=== PATIENT | female | born 1950 | race Caucasian/White ===

== ENCOUNTER 2023-12-30 10:31 | Outpatient (CLI) | payer MEDICARE, SELFPAY ==
--- NOTE | ~2023-12-30 | MR_ITS ---
EXAMINATION: MR knee LT wo con DATE: 12/30/2023 11:41 INDICATION: Other tear of medial meniscus. Left knee pain. TECHNIQUE: Magnetic resonance imaging (MRI) of the left knee was performed without intravenous contra st. Sequences included axial PD-weighted FS FSE, coronal PD-weighted FSE and PD-weighted FS FSE, sagi ttal PD-weighted FSE, and sagittal T2-weighted FS FSE. COMPARISON: Left knee radiographs 12/26/2023 FINDINGS: Medial compartment: Medial meniscus is normal. There is cartilage surface irregularity of femoral condyle and tibial cond yle. Lateral compartment: Lateral meniscus is normal. There is shallow partial-thickness cartilage loss of femoral condyle and tibial condyle. Patellofemoral compartment: There is full-thickness cartilage loss of patellar median ridge and medial and lateral facets with mi ld subchondral edema-like marrow signal intensity. There is full-thickness cartilage loss of lateral trochlea with mild subchondral edema-like marrow signal intensity. Ligaments and tendons: Anterior and posterior cruciate ligaments are normal. There are changes of prior sprains of medial co llateral ligament and fibular collateral ligament characterized by increased signal intensity proxima lly. There is mild patellar tendinopathy. Fluid: There is a small knee joint effusion. There is mild prepatellar and superficial infrapatellar bursiti s. IMPRESSION: 1. Severe chondrosis of patellofemoral compartment and mild chondrosis of medial and lateral compartm ents. 2. Small knee joint effusion. Reviewed, dictated and finalized at location E. IMPRESSION: 1. Severe chondrosis of patellofemoral compartment and mild chondrosis of media l and lateral compartments. 2. Small knee joint effusion.
== END 2023-12-30 10:32 ==
LOC: GOSHIMG 10:32
PROVIDERS: PCP Internal Medicine; Visit Provider Orthopaedic Surgery
DX: S83.242A Other tear of medial meniscus, current injury, left knee, initial encounter (principal); X58.XXXA Exposure to other specified factors, initial encounter; M25.462 Effusion, left knee
CPT/HCPCS: 73721

== ENCOUNTER 2024-02-21 13:43 | Emergency (ER) | payer MEDICARE, SELFPAY ==
--- NOTE | ~2024-02-21 | XR_ITS ---
EXAMINATION: XR knee LT min 4V DATE: 02/21/2024 16:44 INDICATION: Fall. TECHNIQUE: 4 views of left knee were obtained. COMPARISON: Left knee radiographs 12/26/2023 FINDINGS: Bone alignment is normal. No fracture. There is mild tricompartmental osteoarthritis. There is a small knee joint effusion. IMPRESSION: 1. Mild left knee osteoarthritis. 2. Small left knee joint effusion. Reviewed, dictated and finalized at location E.
--- NOTE | ~2024-02-21 | XR_ITS ---
EXAMINATION: XR hand LT min 3V DATE: 02/21/2024 16:44 INDICATION: Fall. TECHNIQUE: 4 views of the left hand were obtained. COMPARISON: None. FINDINGS: No fracture. There is severe osteoarthritis of triscaphe joint and moderate osteoarthritis of first carpometacarpal joint. There is mild to moderate osteoarthritis of first metacarpophalangeal joints and some of the interphalangeal joints. There is severe osteoarthritis of first interphalange al joint and second distal interphalangeal joint. IMPRESSION: 1. Polyarticular osteoarthritis. Reviewed, dictated and finalized at location E.
[2024-02-21 14:18] VITALS: BP 181/91; PULSE 72; RESP 18; TEMP 36.7; O2SAT 94
--- NOTE | 2024-02-21 18:18 | PC.NURSE ---
Pt experienced ground level fall, c/o pain to left knee & left ring finger laceration. Left ring finger swollen around wedding ring causing discomfort. Cary Ahn PA & this RN worked on cutting ring off with ring cutter. Ice applied to finger. Pt tolerated well
[2024-02-21] MEDS: TETANUS,DIPHTHERIA,AC PERTUSSIS ADULT (0.5 ML) BOOSTRIX IM (18:25)
[2024-02-21] MEDS: ACETAMINOPHEN 325 MG TABLET 650 MG PO (18:26)
[2024-02-21 18:40] VITALS: BP 160/88; PULSE 88; RESP 18; TEMP 36.7; O2SAT 100
--- NOTE | 2024-02-21 18:40 | ED.FALL ---
HPI - Fall General Chief Complaint: Fall Stated Complaint: fall, finger lac, knee pain Time Seen by Provider: 02/21/24 17:04 History of Present Illness HPI Narrative: Patient was loading a box when she tripped or felt her left knee give out from under her, she felt a pop in her knee, and then realized that she had also cut her finger when she fell, denies hitting her head. Has had issues with her left knee for a long time. Related Data Home Medications Medication Instructions Recorded Confirmed atorvastatin 10 mg tablet 5 mg PO .COMPLEX 12/26/23 01/01/24 cetirizine 10 mg capsule (All Day 10 mg PO DAILY PRN 12/26/23 01/01/24 Allergy (cetirizine)) cholecalciferol (vitamin D3) 50 50 mcg PO DAILY 12/26/23 01/01/24 mcg (2,000 unit) capsule fluticasone propionate 50 2 spray intranasal DAILY 12/26/23 01/01/24 mcg/actuation nasal spray,suspension (Allergy Relief (fluticasone)) lisinopril 5 mg tablet 5 mg PO DAILY 12/26/23 01/01/24 [id number] 250 mg-dha 90 1 cap PO DAILY 12/26/23 01/01/24 mg-epa 160 dn-smlt-fjsz-zeax capsule (Ocuvite Adult 50 Plus) Allergies Allergy/AdvReac Type Severity Reaction Status Date / Time bevacizumab Allergy Severe RAPID HB, Verified 01/01/24 07:56 RADHA Review of Systems Review of Systems: All systems reviewed & are unremarkable except as noted in HPI and below PMFSH Past Medical History Medical History Allergies High cholesterol Hypertension Retinal hemorrhage Surgical History Surgical History H/O: hysterectomy Hx of cholecystectomy Family History Family History Sibling Family history of liver disease Family history of malignant neoplasm Family history of kidney disease Mother Family history of diabetes mellitus in first degree relative Social History Social History Smoking status: Never smoker Alcohol intake: never Substance use: never Substance use type: does not use Do You Feel Safe in your Home?: Yes Lack of Transportation: No Lack of Food: Never True Current Housing: I Have Housing Concerned About Future Housing: No Difficulty Paying Gas/Electric Bills: No Difficulty Paying for Meds: No Currently Unemployed: No Education: Trade/Vocational Certificate Difficulty w/ Childcare or Family Care: No Living arrangements: with family Occupation/Education: retired Gender identity (if verbalized by the patient): Female Exam Narrative: EXAMINATION OF ORGAN SYSTEMS/BODY AREAS: Constitutional: Vital signs per nursing GENERAL:[No acute distress, non-toxic appearing.] HEAD: Normal with no signs of head trauma. EYES: EOMI, conjunctiva normal ENT: Hearing grossly intact LUNGS: Nonlabored breathing. HEART: [Regular rate and rhythm] ABD: [Soft], nontender to palpation EXT: Multiple lacs to L ring finger with some swelling, SKIN: [No rashes or lesions.] NEURO: [Alert and oriented x 3. No gross focal sensory or strength deficits.] PSYCH: Normal affect Course Vital Signs Vital signs: Vital Signs Temperature 98.0 F 02/21/24 14:18 Pulse Rate 72 02/21/24 14:18 Respiratory Rate 18 02/21/24 14:18 Blood Pressure 181/91 H 02/21/24 14:18 Pulse Oximetry 94 02/21/24 14:18 Temperature 98.0 F 02/21/24 14:18 Pulse Rate 72 02/21/24 14:18 Respiratory Rate 18 02/21/24 14:18 Blood Pressure 181/91 H 02/21/24 14:18 Pulse Oximetry 94 02/21/24 14:18 Procedures Laceration Laceration 1: Date: 02/21/24 Time: 18:44 Site: hand Side (If applicable): left Size (cm): 3 Description: linear, flap, irregular and clean Depth: simple, single layer Local Anesthetic: none (digital block) Amount of anesthesia used
--- NOTE | 2024-02-21 19:26 | PC.NURSE ---
Pt tolerated laceration repair x4 sutures placed, triple antibiotic ointment applied with band aid.
== END 2024-02-21 19:36 | disposition home or self-care (01) ==
PROVIDERS: Emergency Provider Emergency Medicine; PCP Internal Medicine
DX: S83.92XA Sprain of unspecified site of left knee, initial encounter (principal); S61.215A Laceration without foreign body of left ring finger without damage to nail, initial encounter; W01.0XXA Fall on same level from slipping, tripping and stumbling without subsequent striking against object, initial encounter; I10 Essential (primary) hypertension; E78.00 Pure hypercholesterolemia, unspecified; Z23 Encounter for immunization; G89.18 Other acute postprocedural pain
CPT/HCPCS: 12002; 73130; 73564; 90471; 90715; 99284; A9270

== ENCOUNTER 2024-02-27 10:29 | Outpatient (CLI) | payer MEDICARE, SELFPAY ==
--- NOTE | ~2024-02-27 | MR_ITS ---
MRI of the left knee Clinical history: Medial meniscus tear Technique: Coronal proton density and proton density-weighted images, sagittal proton-density and T2 fat-sat images, and axial proton-density fat-saturated images were acquired. COMPARISON: 12/30/2023 Findings: Suspected high-grade, possible complete tear of the proximal ACL, new from prior exam. Post erior cruciate ligament is intact. Stable ganglion cyst along the superior margin of the posterior cr uciate ligament measuring 1.8 x 1.0 cm in size. Medial collateral ligament and the lateral collateral ligament complex are intact. Popliteus tendon is intact. No definite medial meniscal tear seen. There is intrasubstance degenerative signal in the posterior h orn of the medial meniscus. There is probable vertical/free edge tear of the posterior horn of the la teral meniscus, new from prior exam. There are bone contusions focally at the central aspect of the lateral femoral condyle and along the posterior medial and posterolateral tibial plateau regions, suggestive of recent pivot shift injury. No fracture evident. Stable extensive high-grade chondromalacia patella. There is also extensive high -grade chondral malacia the femoral trochlea. Extensor mechanism is intact. Small to moderate joint effusion present. No significant Ventura's cyst. Impression: High-grade, possible complete tear of the proximal ACL, new from prior exam. Probable vertical/free edge tear of the posterior horn lateral meniscus, also new from prior exam. Bone contusions focally at the lateral femoral condyle and along the posterior medial and posterolate ral tibial plateau regions, suggestive of recent pivot shift injury. Jncns-mx-tzcfxlzu joint effusion. Stable degenerative changes, as detailed above, worst in the patellofemoral compartment. Reviewed, dictated and finalized at location M. Impression: High-grade, possible complete tear of the proximal ACL, new from prior exam. Probable vertical/free edge tear of the posterior horn lateral meniscus, also n ew from prior exam. Bone contusions focally at the lateral femoral condyle and along the posterior medial and posterolateral tibial plateau regions, suggestive of recent pivot sh ift injury. Wqeyn-ms-rslaylwq joint effusion. Stable degenerative changes, as detailed above, worst in the patellofemoral com partment.
== END 2024-02-27 10:30 ==
LOC: GOSHIMG 10:30
PROVIDERS: PCP Internal Medicine; Visit Provider Orthopaedic Surgery
DX: M25.462 Effusion, left knee (principal); S83.512D Sprain of anterior cruciate ligament of left knee, subsequent encounter; X58.XXXD Exposure to other specified factors, subsequent encounter
CPT/HCPCS: 73721

== ENCOUNTER 2024-03-05 11:01 | Emergency (ER) | payer MEDICARE, SELFPAY ==
--- NOTE | 2024-03-05 11:08 | ED.WOUNDLAC ---
HPI - Wound/Laceration General Chief Complaint: Wound/Laceration Stated Complaint: Stitches Removal Time Seen by Provider: 03/05/24 11:04 Source: patient Mode of arrival: ambulatory Limitations: no limitations History of Present Illness HPI narrative: Mely is a 73-year-old female patient presenting to the clinic today for suture removal of the ring finger. Sutures were placed on to the left ring medial finger on February 20 after patient had a fall. Related Data Home Medications Medication Instructions Recorded Confirmed atorvastatin 10 mg tablet 5 mg PO .COMPLEX 12/26/23 03/05/24 cetirizine 10 mg capsule (All Day 10 mg PO DAILY PRN Allergic 12/26/23 03/05/24 Allergy (cetirizine)) Symptoms cholecalciferol (vitamin D3) 50 50 mcg PO DAILY 12/26/23 03/05/24 mcg (2,000 unit) capsule fluticasone propionate 50 2 spray intranasal DAILY 12/26/23 03/05/24 mcg/actuation nasal spray,suspension (Allergy Relief (fluticasone)) lisinopril 5 mg tablet 5 mg PO DAILY 12/26/23 03/05/24 [id number]-[id number] 250 mg-dha 90 1 cap PO DAILY 12/26/23 03/05/24 mg-epa 160 zo-sbpy-cyls-zeax capsule (Ocuvite Adult 50 Plus) Allergies Allergy/AdvReac Type Severity Reaction Status Date / Time bevacizumab Allergy Severe RAPID HB, Verified 03/05/24 11:10 SHAKES Review of Systems Review of Systems: Pertinent positives per HPI. Patient denies any fever, chills, rash, headache, visual changes, dizziness, cough, runny nose, sore throat, shortness of breath, chest pain, palpitations, nausea, vomiting, diarrhea, constipation, abdominal pain, or any urinary issues. [facility] Past Medical History Medical History Allergies High cholesterol Hypertension Retinal hemorrhage Surgical History Surgical History H/O: hysterectomy Hx of cholecystectomy Family History Family History Sibling Family history of liver disease Family history of malignant neoplasm Family history of kidney disease Mother Family history of diabetes mellitus in first degree relative Social History Social History Smoking status: Never smoker Alcohol intake: never Substance use: never Substance use type: does not use Do You Feel Safe in your Home?: Yes Lack of Transportation: No Lack of Food: Never True Current Housing: I Have Housing Concerned About Future Housing: No Difficulty Paying Gas/Electric Bills: No Difficulty Paying for Meds: No Currently Unemployed: No Education: Trade/Vocational Certificate Difficulty w/ Childcare or Family Care: No Living arrangements: with family Occupation/Education: retired Gender identity (if verbalized by the patient): Female Comments At the time of my signature, I reviewed and agree with the nursing past medical, surgical, social, and family history. There is no relevant family history pertinent to the patient complaint. Exam Narrative: General: Well-developed, well nourished, in no apparent distress Head: Normocephalic, atraumatic. Cardio: Regular rate and rhythm, s1 and s2 normal, no murmur appreciated. Resp: Clear to auscultation bilaterally, no rhonchi, rales, wheezing or rubs. Integumentary: [place], warm, and dry, well healing scabbed over laceration to the left medial ring finger. Course Course Emergency Course: Portions of this record may have been created with voice recognition software. Level of Care: Express Care Visit Vital Signs Vital signs: Vital signs reviewed MDM - Wound/Laceration MDM Narrative Medical decision making narrative: At the time of visit patient is resting comfortably on the exam table. Patient appears to be nontoxic. Plan: Four sutures were removed in the clinic today. Patient tolerated well. Suppo
[2024-03-05 11:16] VITALS: BP 136/80; PULSE 57; RESP 16; TEMP 37; O2SAT 98
== END 2024-03-05 11:22 | disposition home or self-care (01) ==
PROVIDERS: Emergency Provider Nurse Practitioner Family; PCP Internal Medicine
DX: S61.215D Laceration without foreign body of left ring finger without damage to nail, subsequent encounter (principal); X58.XXXD Exposure to other specified factors, subsequent encounter; E78.00 Pure hypercholesterolemia, unspecified; I10 Essential (primary) hypertension
CPT/HCPCS: 99211; G0463

== ENCOUNTER 2024-06-09 02:58 | Emergency (ER) | payer MEDICARE, SELFPAY ==
--- NOTE | ~2024-06-09 | XR_ITS ---
Portable chest x-ray Comparison: None Clinical History: Palpitations Findings: Lungs are clear, without focal consolidation or pleural effusion. Cardiomediastinal silho uette is unremarkable. Bones and soft tissues are unremarkable. Impression: Normal chest. Reviewed, dictated and finalized at location . Impression: Normal chest.
[2024-06-09 03:03] VITALS: BP 181/87; PULSE 96; RESP 19; TEMP 37.1; O2SAT 100
--- NOTE | 2024-06-09 03:05 | ECG_ITS ---
Test Date: 2024-06-09 03:09:03 Measurements Intervals [place] Rate: 85 P: 50 TX: 219 QRS: -38 QRSD: 139 T: 110 QT: 376 QTc: 449 Interpretive Statements SINUS RHYTHM WITH FIRST DEGREE AV BLOCK LEFT AXIS DEVIATION LEFT BUNDLE BRANCH BLOCK ABNORMAL ECG No previous ECG available for comparison Electronically Signed On 06-09-2024 06:32:50 CDT by Gonzalo Watt D.O.
[2024-06-09 03:19] VITALS: O2SAT 100
[2024-06-09 03:21] LABS: Basophils Percent Auto 0.4 % (0.2-1.2); Eosinophils Absolute Auto 0.1 K/mm3 (0-0.3); Eosinophils Percent Auto 1.7 % (0-4.4); Hematocrit 40.5 % (37.0-47.0); Hemoglobin 13.5 g/dL (12.0-15.0); Immature Granulocyte Absolute 0.02 K/mm3 (0.00-0.031); Immature Granulocyte Percent A 0.3 % (0-0.5); Lymphocytes Percent Auto 48.8 % (18.3-44.2); Mean Corpuscular HGB Conc 33.3 g/dl (32-36); Mean Platelet Volume 8.4 fl (7.4-10.4); Monocytes Absolute Auto 0.5 K/mm3 (0.1-0.6); Monocytes Percent Auto 6.1 % (2.6-8.5); Neutrophils Absolute Auto 3.2 K/mm3 (1.3-6.7); Neutrophils Percent Auto 42.7 % (45.5-73.1); Platelet Count Result 199 k/mm3 (150-375); Red Cell Distribution Width 11.8 % (11.5-14.5); White Blood Count 7.6 K/mm3 (4.5-10.0)
[2024-06-09 03:30] LABS: Alanine Aminotransferase 15 U/L (6-35); Albumin Level 4.4 g/dL (3.5-5.1); Alkaline Phosphatase 96 U/L (38-126); Anion Gap 9 mmol/L (4-12); Aspartate Amino Transferase 24 U/L (14-36); Bilirubin,Total 0.4 mg/dL (0.2-1.3); Blood Urea Nitrogen 19 mg/dL (7-17); Calcium 9.8 mg/dL (8.4-10.2); Carbon Dioxide 29 mmol/L (22-30); Chloride 101 mmol/L (98-107); Estimated CRCL calculation 49 ml/min; Estimated Glomerular Filt Rate > 60; Glucose 95 mg/dL (65-110); Lipase 207 U/L (23-300); Potassium 4.1 mmol/L (3.4-5.0); Sodium 139 mmol/L (137-145)
[2024-06-09 03:32] LABS: Partial Thromboplastin Time 28.3 Seconds (22.3-36.8); Prothrombin Time 13.7 Seconds (11.1-14.7)
[2024-06-09 03:42] LABS: Troponin I < 0.012 ng/mL (0.000-0.034)
--- NOTE | 2024-06-09 04:41 | ED.GENADULT ---
HPI - General Adult General Chief complaint: Arrhythmia/Palpitations Stated complaint: Heart racing, no chest pain, hx of LBB Time Seen by Provider: 06/09/24 03:10 History of Present Illness HPI narrative: This is a 73-year-old female presenting with palpitations. Patient says she woke up to go the bathroom around 1 the morning. When she got back to bed she started to have palpitations associated with shortness of breath nausea. The resolved on their own after 20 minutes. She is currently asymptomatic. Patient says that she had these 10 years ago for quite some time. She had cardiology evaluation at that time unknown was able to figure out what was causing it. However they slowly decreased in frequency and she has not had 1 in quite some time. No fevers chills cough chest pain shortness of breath abdominal pain urinary symptoms. No nausea vomiting diarrhea. Related Data Home Medications Medication Instructions Recorded Confirmed atorvastatin 10 mg tablet 5 mg PO .COMPLEX 12/26/23 05/27/24 cetirizine 10 mg capsule (All Day 10 mg PO DAILY PRN Allergic 12/26/23 05/27/24 Allergy (cetirizine)) Symptoms cholecalciferol (vitamin D3) 50 50 mcg PO DAILY 12/26/23 05/27/24 mcg (2,000 unit) capsule fluticasone propionate 50 2 spray intranasal DAILY 12/26/23 05/27/24 mcg/actuation nasal spray,suspension (Allergy Relief (fluticasone)) lisinopril 5 mg tablet 5 mg PO DAILY 12/26/23 05/27/24 ixxacwaq-bpo-uiond8 250 mg-dha 90 1 cap PO DAILY 12/26/23 05/27/24 mg-epa 160 bd-hdof-yqrx-zeax capsule (Ocuvite Adult 50 Plus) acetaminophen 500 mg tablet 500 mg PO Q6H PRN Pain 05/27/24 05/27/24 ibuprofen 200 mg tablet 200 mg PO Q6H PRN Pain 05/27/24 05/27/24 Allergies Allergy/AdvReac Type Severity Reaction Status Date / Time bevacizumab Allergy Severe RAPID HB, Verified 06/09/24 03:20 SHAKES PMFSH Past Medical History Medical History Allergies High cholesterol Hypertension Retinal hemorrhage Surgical History Surgical History H/O: hysterectomy Hx of cholecystectomy Family History Family History Sibling Family history of liver disease Family history of malignant neoplasm Family history of kidney disease Cerebrovascular accident Mother Family history of diabetes mellitus in first degree relative Diabetes mellitus Dementia Father , Onset Age: 33 MVC Sibling , copd Liver cancer Social History Social History Smoking status: Never smoker Second hand tobacco smoke exposure: No Alcohol intake: never Substance use: never Substance use type: does not use Do You Feel Safe in your Home?: Yes Lack of Transportation: No Lack of Food: Never True Current Housing: I Have Housing Concerned About Future Housing: No Difficulty Paying Gas/Electric Bills: No Difficulty Paying for Meds: No Currently Unemployed: No Education: Trade/Vocational Certificate Difficulty w/ Childcare or Family Care: No Living arrangements: with family Occupation/Education: retired Additional occupation/education comments: [employer] Gender identity (if verbalized by the patient): Female Spiritual care concerns: No Exam Narrative: APPEARANCE: No apparent distress. Head: atraumatic. EYES: EOMI, NOSE: Atraumatic NECK: Trachea midline RESPIRATORY: No increased rate of breathing clear auscultation CARDIOVASCULAR: RRR, no peripheral edema ABDOMINAL: Non-distended soft nontender MUSCULOSKELETAl: No obvious deformities NEURO: Alert. Moving 4/4 extremities SKIN:: Warm, dry. Normal color PSYCHIATRIC: Normal affect Course Vital Signs Vital signs: Vital Signs Temperature 98.8 F 06/09/24 03:03 Pulse Rate 96 06/09/24 03:0
[2024-06-09 04:59] VITALS: BP 159/80; PULSE 70; RESP 16; O2SAT 96
--- NOTE | 2024-06-09 05:40 | ECG_ITS ---
Test Date: 2024-06-09 05:43:18 Measurements Intervals [place] Rate: 102 P: 63 [place]: 211 QRS: -49 QRSD: 137 T: 108 QT: 348 QTc: 454 Interpretive Statements SINUS TACHYCARDIA WITH FIRST DEGREE AV BLOCK LEFT AXIS DEVIATION POSSIBLE LEFT ATRIAL ENLARGEMENT LEFT BUNDLE BRANCH BLOCK BASELINE ARTIFACT- I, II, III, AVR, AVL, AVF, V1-V2, V6 ABNORMAL ECG Compared to ECG 06/09/2024 03:09:03 HEART RATE HAS INCREASED Electronically Signed On 06-09-2024 06:37:21 CDT by Gonzalo Watt D.O.
[2024-06-09 06:53] LABS: Troponin I < 0.012 ng/mL (0.000-0.034)
[2024-06-09 07:07] VITALS: BP 153/90; PULSE 70; RESP 15; O2SAT 98
== END 2024-06-09 07:22 | disposition home or self-care (01) ==
PROVIDERS: Emergency Provider Emergency Medicine; PCP Internal Medicine
DX: R00.0 Tachycardia, unspecified (principal); R06.02 Shortness of breath; I10 Essential (primary) hypertension; E78.00 Pure hypercholesterolemia, unspecified; Z90.49 Acquired absence of other specified parts of digestive tract; Z90.710 Acquired absence of both cervix and uterus; Z79.899 Other long term (current) drug therapy
CPT/HCPCS: 36415; 71045; 80053; 83690; 84484; 85025; 85610; 85730; 93005; 99284

== ENCOUNTER 2024-09-16 03:03 | Day surgery (SDC) | payer MEDICARE, SELFPAY ==
--- NOTE | 2024-09-10 15:41 | PC.NURSE ---
Report to the Outpatient Waiting Room, entrance under the green pavilion located off [facility], at time __6 AM on date _09/16/24 . Planned Procedure Time: __7:30 AM .? Time changes happen often and if your time is changed the preop area will call you the afternoon before. - You and your visitor will be asked to self-screen and do not enter if you have any COVID symptoms. Please call surgeon if you need to reschedule. - A mask is optional within the hospital at this time. Patients may have clear liquids (water, carbonated beverages, clear teas, apple juice) until 3 hours prior to surgery( 4:30 AM)with a maximum of 20 ounces. - No food from midnight until time of surgery and no smoking. This includes no chewing gum, candy or mints. - Infants may have breast milk until 4 hours before surgery, formula 6 hours prior to surgery. - Children will be allowed to drink immediately following surgery.? If applicable, please bring a bottle or sippy cup to assist with drinking. Juice, water, soda, and popsicles are readily available.? For infants on formula, please bring formula the day of surgery.? Pacifiers are allowed. Take only the following medications with a SIP of water on the morning of surgery: _NONE DO NOT STOP ANY OF YOUR OTHER PRESCRIPTION MEDICATIONS PRIOR TO SURGERY EXCEPT THE FOLLOWING Medications to discontinue per physician ___PT STATES HOLD ASPIRIN 4 DAYS PRE OP PER DR FERNANDEZ. LAST DOSE 09/11/24 HOLD ALL VITAMINS AND SUPPLEMENTS 3 DAYS PRE OP.LAST DOSE 09/12/24 Please no make-up, nail danish, hairspray, perfume, deodorant, or body powder the day of surgery.? No jewelry (including any body piercings) or valuables the day of surgery, leave them at home.? Please take a shower or bath the night before, or the morning of, surgery with an antibacterial soap.? Wear comfortable, loose fitting clothing.? Children are encouraged to wear pajamas. - Jewelry must be removed prior to entering the operating room.? Rings and piercings that are not removed may be cut off. - The hospital will not accept responsibility for valuables.? - Please leave all valuables, including medications, at home the day of surgery. If you are going home after surgery, a licensed after school driver must drive you home.? - NO public transportation without another adult if you receive anesthesia. - We recommend that an adult stay with you for 24 hours following discharge. - We also recommend that you do not drive, make important decision, drink alcoholic beverages, or take any drugs that were not prescribed by your health care provider for at least 24 hours after your discharge time. For Pediatric surgeries, we recommend two adults accompany the child home. Follow any additional instructions given to you from your surgeon. Telephone instructions given to __PATIENT and asked if any additional questions and then verbalized understanding. Patient advised to call surgeon office or pre surgery nurse liaison [phone] if any additional questions.
[2024-09-10 15:46] VITALS: BMI 25.9
--- NOTE | 2024-09-15 12:54 | P.HP_ITS ---
H&P: HPI History of Present Illness Date/Time: 09/15/24 12:54 Chief Complaint: Patient has knee pain left. She has catching and locking mechanical type symptoms and a meniscal tear involving the lateral meniscus. Review of Systems Musculoskeletal: Musculoskeletal: Reports arthralgias, Reports joint swelling and Reports stiffness Neurologic: Reports abnormal gait [facility] Past Medical History Medical History Allergies High cholesterol Hypertension Retinal hemorrhage Surgical History Surgical History H/O: hysterectomy Hx of cholecystectomy Family History Family History Sibling Family history of liver disease Family history of malignant neoplasm Family history of kidney disease Cerebrovascular accident Mother Family history of diabetes mellitus in first degree relative Diabetes mellitus Dementia Father , Onset Age: 33 MVC Sibling , copd Liver cancer Social History Social History Smoking status: Never smoker Second hand tobacco smoke exposure: No Alcohol intake: never Substance use: never Substance use type: does not use Do You Feel Safe in your Home?: Yes Lack of Transportation: No Lack of Food: Never True Current Housing: I Have Housing Concerned About Future Housing: No Difficulty Paying Gas/Electric Bills: No Difficulty Paying for Meds: No Currently Unemployed: No Education: Trade/Vocational Certificate Difficulty w/ Childcare or Family Care: No Living arrangements: alone 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 Gender identity (if verbalized by the patient): Female Spiritual care concerns: No Meds Home Medications and Allergies Home Medications ?Medication ?Instructions ?Recorded ?Confirmed ?Type atorvastatin 10 mg tablet 5 mg PO .COMPLEX 12/26/23 09/10/24 History cetirizine 10 mg capsule (All Day 10 mg PO DAILY PRN Allergic 12/26/23 09/10/24 History Allergy (cetirizine)) Symptoms cholecalciferol (vitamin D3) 50 50 mcg PO DAILY 12/26/23 09/10/24 History mcg (2,000 unit) capsule fluticasone propionate 50 2 spray intranasal DAILY 12/26/23 09/10/24 History mcg/actuation nasal spray,suspension (Allergy Relief (fluticasone)) [id number] 250 mg-dha 90 1 cap PO DAILY 12/26/23 09/10/24 History mg-epa 160 jr-zxpj-bpbx-zeax capsule (Ocuvite Adult 50 Plus) acetaminophen 500 mg tablet 500 mg PO Q6H PRN Pain 05/27/24 09/10/24 History aspirin 81 mg tablet,delayed 81 mg PO DAILY 09/10/24 09/10/24 History release ezetimibe 10 mg tablet (Zetia) 10 mg PO DAILY 09/10/24 09/10/24 History losartan 50 mg tablet 50 mg PO DAILY 09/10/24 09/10/24 History Allergies Allergy/AdvReac Type Severity Reaction Status Date / Time bevacizumab Allergy Severe RAPID HB, Verified 09/10/24 15:30 SHAKES Exam Narrative: On exam she is tender laterally has catching locking and pain in the knee she has got mechanical symptoms. Neurologically she is intact. She walks with a limp. She has pain with any manipulation. Radiology Reports: Comments: Patient: Mely Milligan MRI of the left knee Clinical history: Medial meniscus tear Technique: Coronal proton density and proton density-weighted images, sagittal proton-density and T2 fat-sat images, and axial proton-density fat-saturated images were acquired. COMPARISON: 12/30/2023 Findings: Suspected high-grade, possible complete tear of the proximal ACL, new from prior exam. Posterior cruciate ligament is intact. Stable ganglion cyst along the superior margin of the posterior cruciate ligament measuring 1.8 x 1.0 cm in size. Medial collateral ligament and the lateral collateral ligament complex are intact. Popliteus tendon is intact. No definite medial meniscal tear seen. There is intrasubstance degenerative signal in the posterior horn of the medial meniscus. There is probable vertical/free edge tear of the posterior horn of the lateral meniscus, new from prior exam. There are bone contusions focally at the central aspect of the lateral femoral condyle and along the posterior medial and posterolateral tibial plateau regions, suggestive of recent pivot shift injury. No fracture evident. Stable extensive high-grade chondromalacia patella. There is also extensive high-grade chondral malacia the femoral trochlea. Extensor mechanism is intact. Small to moderate joint effusion present. No significant Ventura's cyst. Impression: High-grade, possible complete tear of the proximal ACL, new from prior exam. Probable vertical/free edge tear of the posterior horn lateral meniscus, also new from prior exam. Bone contusions focally at the lateral femoral condyle and along the posterior medial and posterolateral tibial plateau regions, suggestive of recent pivot shift injury. Powgf-lg-czizmumn joint effusion. Stable degenerative changes, as detailed above, worst in the patellofemoral compartment. Reviewed, dictated and finalized at [facility]. Dictated By: Tejas Barreto MD 02/27/24 1145 Signed By: <Electronically signed by Tejas Barreto MD in [place]> 02/27/24 1149 Hand X-Ray 02/21/24 Knee X-Ray 02/21/24 Knee MRI 02/27/24 Orthopedics Result Report 12/26/23 Assessment and Plan Assessment and plan (1) Acute lateral meniscus tear of left knee: Code(s): S83.282A - Other tear of lateral meniscus, current injury, left knee, initial encounter Status: Acute Assessment and Plan: Patient has knee pain left. Despite adequate conservative treatment she remains symptomatic. She has had more than 6 months of pain and continues to have pain. She does have some degenerative changes that may affect the outcome. I have discussed treatment options with her because of the mechanical catching and locking and the acute symptoms she would like to proceed with arthroscopy partial meniscectomy. I have discussed this with her risks benefits limitations and alternatives in detail. Will proceed as indicated.
[2024-09-16] VITALS (9 sets, daily range): BP systolic 118–151; BP diastolic 55–75; PULSE 62–91; RESP 12–18; TEMP 36.2–36.3; O2SAT 97–100
[2024-09-16] MEDS: ACETAMINOPHEN 500 MG TABLET 1000 MG PO (06:25)
[2024-09-16] MEDS: LACTATED RINGERS 1,000 ML 30 ML IV CONT ×2 (06:30→08:15)
[2024-09-16] MEDS: KETOROLAC 15 MG/ML VIAL (*BKC) IV PUSH (06:34)
--- NOTE | 2024-09-16 06:52 | WPDHPUPDATE1 ---
History and Physical Update Update Date/Time: 09/16/24 06:52 History and Physical has been reviewed, including an updated exam of the patient. There are NO changes in the patient's condition. Risks, benefits, and alternatives have been discussed and questions answered. Patient agrees to proceed with procedure. Discussed the fact that I wont be able to change the arthritic changes
--- NOTE | 2024-09-16 07:04 | P.PNAN_ITS ---
Anes - Initial Pre Proc Eval Procedure: Operation Date: 09/16/24 07:30 Proposed Procedures p Left Knee Arthroscopy, Partial Meniscectomy, Proceed as Indicated - Julien Greene MD Date/Time: 09/16/24 07:04 Surgeon: Julien Greene MD Pre Op Diagnosis: Left Knee Medial Meniscal Tear Patient Data Age: 74 Gender: F Height: 1.57 m Weight: 64.5 kg Last Vital Signs Temp 97.1 F L 09/16/24 06:21 Pulse 70 09/16/24 06:21 Resp 18 09/16/24 06:21 BP 145/75 H 09/16/24 06:21 Pulse Ox 97 09/16/24 06:21 O2 Del Method Room Air 09/16/24 06:21 Allergies Allergy/AdvReac Type Severity Reaction Status Date / Time bevacizumab Allergy Severe RAPID HB, Verified 09/10/24 15:30 SHAKES Home Medications ?Medication ?Instructions ?Recorded ?Confirmed ?Type atorvastatin 10 mg tablet 5 mg PO .COMPLEX 12/26/23 09/10/24 History cetirizine 10 mg capsule (All Day 10 mg PO DAILY PRN Allergic 12/26/23 09/10/24 History Allergy (cetirizine)) Symptoms cholecalciferol (vitamin D3) 50 50 mcg PO DAILY 12/26/23 09/10/24 History mcg (2,000 unit) capsule fluticasone propionate 50 2 spray intranasal DAILY 12/26/23 09/10/24 History mcg/actuation nasal spray,suspension (Allergy Relief (fluticasone)) [id number]-jgi-hleww4 250 mg-dha 90 1 cap PO DAILY 12/26/23 09/16/24 History mg-epa 160 ui-wwef-iiqz-zeax capsule (Ocuvite Adult 50 Plus) acetaminophen 500 mg tablet 500 mg PO Q6H PRN Pain 05/27/24 09/10/24 History aspirin 81 mg tablet,delayed 81 mg PO DAILY 09/10/24 09/16/24 History release ezetimibe 10 mg tablet (Zetia) 10 mg PO DAILY 09/10/24 09/10/24 History losartan 50 mg tablet 50 mg PO DAILY 09/10/24 09/10/24 History Patient hx anesthesia problems: none Family hx anesthesia problems: none Results Review: All pre-operative results and documents have been reviewed as part of the pre- operative evaluation. [facility] Past Medical History Medical History Retinal hemorrhage High cholesterol Hypertension Allergies Surgical History Surgical History Hx of cholecystectomy H/O: hysterectomy Family History Family History Sibling Family history of liver disease Family history of malignant neoplasm Family history of kidney disease Cerebrovascular accident Mother Family history of diabetes mellitus in first degree relative Diabetes mellitus Dementia Father , Onset Age: 33 MVC Sibling , copd Liver cancer Social History Social History Smoking status: Never smoker Second hand tobacco smoke exposure: No Alcohol intake: never Substance use: never Substance use type: does not use Do You Feel Safe in your Home?: Yes Lack of Transportation: No Lack of Food: Never True Current Housing: I Have Housing Concerned About Future Housing: No Difficulty Paying Gas/Electric Bills: No Difficulty Paying for Meds: No Currently Unemployed: No Education: Trade/Vocational Certificate Difficulty w/ Childcare or Family Care: No Living arrangements: with family Occupation/Education: retired Additional occupation/education comments: [employer] Gender identity (if verbalized by the patient): Female Spiritual care concerns: No Anes - Eval Final PreProcedure Day of Procedure 09/16/24 07:04 Patient weight: overweight Heart: regular rate and rhythm Lungs: clear to auscultation Airway: Mallampati scale class II Neurological: alert and oriented Last oral intake: >/= 8 hours ASA classification: III Emergent: no Anesthetic plan: proceed Anesthesia type and monitoring: general LMA and standard monitoring Results Review: All pre-operative results and documents have been reviewed as part of the pre- operative evaluation. HTN, hyperlipidemia, overweight, CAD w cardiac clearance noted, LBBB, mild per pt and no intervention. Pt still mostly active without cp or sob. Informed Consent: The patient's anesthetic plan and its attendant risks and benefits were discussed with the patient/family/POA. Questions were solicited and answers provided to the satisfaction of the patient/family/POA.
[2024-09-16] MEDS: ceFAZolin 2 GM/D5W 50 ML 2 GM/50 ML BAG IVPB (07:34)
[2024-09-16] MEDS: LIDO 1%/EPINEPHRINE 1:100,000 50 ML VIAL 30 ML INFILTRATE (07:51)
--- NOTE | 2024-09-16 08:06 | P.OP_ITS ---
Procedure Note - Detailed Date of Procedure 09/16/24 Pre-op Diagnosis Left Knee Lateral Meniscal Tear Post-op Diagnosis Same Procedure Performed LEFT knee arthroscopy with partial meniscectomy Surgeon Julien Greene MD Anesthesia General Description of Procedure Patient brought to operating room # 7. The knee was examined and noted to be relatively stable. An anesthetic was administered. The knee was sterilely prepped and draped in the usual manner. Standard portals were used. Superior medial portal was used for the outflow cannula, inferior lateral portal was used for the scope, inferior medial portal was used for the instruments. Arthroscopy was performed, the patellar femoral joint degenerative changes. The medial compartment showed Grade 3 changes. The lateral compartment showed a torn meniscus in the posterior horn area. The ACL was probed, and somewhat more mobile than usual. Using baskets and elizabeth the meniscal tear was trimmed back to a stable base so the nothing further could be pulled into the joint. Any loose or delaminated fragments were gently trimmed to a stable base. At this point the instruments were withdrawn, sutures placed and patient left the operating room in satisfactory condition. Estimated Blood Loss 20 Drains No Packing No Pathology None sent Complications No immediate complications Condition Stable Disposition PACU [facility] Billing Surgery - Charge Forward: Surgery Billing (79920 Knee Arthroscopy, Partial Me nisectomy)
[2024-09-16 08:26] LABS: Glucose Point of Care 98 mg/dl (65-105)
[2024-09-16] MEDS: oxyCODONE HCL (*CRX) 5 MG TAB IR PO (09:31)
== END 2024-09-16 10:04 | disposition home or self-care (01) ==
PROVIDERS: PCP Internal Medicine; Visit Provider Orthopaedic Surgery
PROC: (CPT 29870; principal; 2024-09-16 07:30)
DX: S83.282A Other tear of lateral meniscus, current injury, left knee, initial encounter (principal); I10 Essential (primary) hypertension; E78.00 Pure hypercholesterolemia, unspecified; X58.XXXA Exposure to other specified factors, initial encounter; Z79.82 Long term (current) use of aspirin; Z98.890 Other specified postprocedural states; Z90.49 Acquired absence of other specified parts of digestive tract; Z80.0 Family history of malignant neoplasm of digestive organs; Z82.49 Family history of ischemic heart disease and other diseases of the circulatory system
CPT/HCPCS: 29881; 82948; A9270; J0690; J1100; J1885; J2003; J2004; J2250; J2405; J2704; J3010; J7120

== ENCOUNTER 2025-05-24 22:01 | Emergency (ER) | payer MEDICARE, SELFPAY ==
[2025-05-24 22:03] VITALS: BP 199/91; PULSE 78; RESP 16; TEMP 36.6; O2SAT 98
--- OUTSIDE RECORDS SUMMARY | 2025-05-24 22:03 | XMS_ITS ---
Author Organization [facility] [place] ([address]) Address [address] [place] [address] Care Team Providers Care Baby Formula Mixer Name Role Phone Lucio Jean Baptiste Primary Care Provider Unavailabl Clive Antony Unavailable [phone] ZZ-Migration, Provider Unavailable Unavailab le Allergies Allergen (clinical drug ingredient) Drug/Non Drug Allergy documented on EMR Reaction Allergy Type Onset Date Status bevacizumab Avastin Elevated BP, Hea rt Palpitations Drug Allergy Active REASON FOR VISIT Multum To [facility] Conversion Encounter Medications Medication SIG (Take, Route, Frequency, Duration) Notes Start Date End Date Status NASONEX 50 MCG/INH 2 SPRAY(S) INTRANASALLY ONCE A DAY; Duration: 30 DAY(S) *Please review for potential replacement for e-prescription and drug interaction check* Active PATANASE NASAL SPRAY (W/REBATE) 665 MCG/INH 2 SPRAY(S) INTRANASALLY 2 TIMES A DAY; Duration: 30 DAY(S) *Please review for potential replacement for e-prescription and drug interaction check* Active EpiPen 2-Bhargav 0.3 MG/0.3ML 0.3 mg intramuscularly once; Duration: 1 dose(s) Active Flonase Allergy Relief 50 MCG/ACT 1 spray(s) intranasally (avoid nasal septum) once a day Active Atorvastatin Calcium 10 MG 0.5 tablet orally three times weekly Active Benadryl Allergy 25 MG 1 cap(s) orally 3 times a day Active SIT (TRADITIONAL) VARIABLE PER SCHEDULE SC PER SCHEDULE *Please review for potential replacement for e-prescription and drug interaction check* Active Fluticasone Propionate 50 MCG/ACT 2 spray(s) intranasally once a day; Duration: 30 day(s) Active Cetirizine HCl 10 MG 1 tab(s) orally once a day; Duration: 30 day(s) Active SIT (CLUSTER) VARIABLE PER SCHEDULE SC PER SCHEDULE; Duration: TO BE DETERMINED *Please review for potential replacement for e-prescription and drug interaction check* Active Vitamin D3 50 MCG (2000 UT) 1 tab(s) orally once a day Active Lisinopril 5 MG 1 tab(s) orally once a day Active Vitamin D3 1.25 MG (69573 UT) 1 cap(s) orally once a week Active Encounters Encounter Location Date Provider Diagnosis [address] [address] 03/21/2024 Provider Shirin Allergic rhinitis due to pollen J30.1 ; Vitamin D deficiency, unspecified E55.9 and Essential (primary) hypertension I10 Assessments Encounter Date Diagnosis (ICD Code) Assessment Notes Treatment Notes Treatment Clinical Notes Section Notes 03/21/2024 Allergic rhinitis due to pollen (ICD-10 - J30.1) 03/21/2024 Vitamin D deficiency, unspecified (ICD-10 - E55.9) 03/21/2024 Essential (primary) hypertension (ICD-10 - I10) Plan Of Treatment Medication Medication Name Sig Start Date Stop Date Notes SIT (TRADITIONAL) VARIABLE PER SCHEDULE SC PER SCHEDULE *Please review for potential replacement for e-prescription and drug interaction check* Fluticasone Propionate 50 MCG/ACT 2 spray(s) intranasally once a day; Duration: 30 day(s) Vitamin D3 50 MCG (2000 UT) 1 tab(s) orally once a day Lisinopril 5 MG 1 tab(s) orally once a day Progress Notes * Mely MILLIGAN MDOB:[birth year] (74 yo F)Acc No.[id number]:03/21/2024 Patient: Maxx Mely VELAZQUEZ Provider: Robert Mueller :1950 A ge:73 Y S ex:Female Date:03/21/2024 Address:[address] [place], [place] [id number] Pcp:Lucio Jean Baptiste Subjective: * Chief Complaints: * 1 . Multum To [facility] Conversion Encounter. * Medical History: * Medications: T aking Flonase Allergy Relief 50 MCG/ACT Suspension 1 spray(s) intranasally (avoid nasal septum) once a day , Taking Atorvastatin Calcium 10 MG Tablet 0.5 tablet orally three times weekly , Taking SIT (CLUSTER) VARIABLE SEE RECORD PER SCHEDULE SC PER SCHEDULE , Notes to Pharmacist: *Please review for potential replacement for e-prescription and drug interaction check*, Taking Cetirizine HCl 10 MG Tablet 1 tab(s) orally once a day , Taking PATANASE NASAL SPRAY (W/REBATE) 665 MCG/INH SPRAY 2 SPRAY(S) INTRANASALLY 2 TIMES A DAY , Notes to Pharmacist: *Please review for potential replacement for e-prescription and drug interaction check*, Taking NASONEX 50 MCG/INH SPRAY 2 SPRAY(S) INTRANASALLY ONCE A DAY , Notes to Pharmacist: *Please review for potential replacement for e-prescription and drug interaction check*, Taking EpiPen 2-Bhargav 0.3 MG/0.3ML Solution Auto-injector 0.3 mg intramuscularly once , Taking Vitamin D3 1.25 MG (61988 UT) Capsule 1 cap(s) orally once a week , Taking Benadryl Allergy 25 MG Capsule 1 cap(s) orally 3 times a day * Allergies: A vastin: Elevated BP, Heart Palpitations. Objective: * Vitals: Assessment: * Assessment: 1. A llergic rhinitis due to pollen - J30.1 (Primary) 2 . V itamin D deficiency, unspecified - E55.9 3 . E ssential (primary) hypertension - I10 Plan: * Treatment: 2. V itamin D deficiency, unspecified Continue Vitamin D3 Tablet, 50 MCG (2000 UT), 1 tab(s), orally, once a day. 3. E ssential (primary) hypertension Continue Lisinopril Tablet, 5 MG, 1 tab(s), orally, once a day. * Billing Information: * Visit Code: * Procedure Codes: * Electronic signature of Raysa CORCORAN-Migration on 05/24/2025 at 10:03 PM CDT Sign off status: Pending * Provider: Robert angel Migration Date: 0 03/21/2024 Generated for Perla palomino/Edward/Pauline on: 0 05/24/2025 10:03 PM CDT
--- OUTSIDE RECORDS SUMMARY | 2025-05-24 22:03 | XMS_ITS | Continuity of Care Document ---
Author Organization [facility] Address [address] [place] [address] Phone Care Team Providers Care Search Consultant Name Role Phone Anthony PT,MPT,ATC, Danny Unavailable Unavai lable Procedures Procedure Date Neuromuscular Re-Ed Therapeutic Exercise Neuromuscular Re-Ed Therapeutic Exercise Progress Note Therapeutic Activities Neuromuscular Re-Ed Therapeutic Exercise Therapeutic Activities Neuromuscular Re-Ed Therapeutic Exercise Therapeutic Activities Therapeutic Exercise Neuromuscular Re-Ed Manual Therapy PT Evaluation Moderate Complexity Therapeutic Activities Neuromuscular Re-Ed Advance Directives Directive Yes / No Effective Date File Name No Information Encounters Encounter Description Practice Location Reason(s) For Visit Diagnoses Date Provider Providers Copied on Encounter [facility], [place], [place], [id number], tel:[phone] [place] No Information 9 [place], [place], [place]. [facility], [place], [place], [id number], tel:[phone] [place] No Information 9 [facility]. , [place], [place]. [facility], [place], [place], [id number], tel:[phone] [place] No Information 9 [place], [place]. [facility], [address], [place], [place], [id number], tel:[phone] [place] No Information 9 [place], . [facility], [place], [place], [id number], tel:[phone] [place] No Information 9 [place], . [facility], [address], [place], [place], [id number], tel:[phone] [place] No Information 9 [facility]. . Family History Family Member Type Diagnosis Age At Onset No Information Payers Payer name Insurance type Covered constitution party ID Authoriza tion(s) No Information Social History Type Description Quantity Date Captured Comments Sex Female Smoking Status No Information Chief Complaint And Reason For Visit No Information Reason For Referral Reason For Referral No Information History Of Present Illness Encounter Date Complaint History Of Prese nt Illness No Information Functional Status Date Functional Assessmen t No Information Instructions Date Instruction Additional Infor mation No Information Assessments Type Assessment Date No Information Patient Care Teams Name Effective Dates (start - stop) Status Members No Information
--- OUTSIDE RECORDS SUMMARY | 2025-05-24 22:03 | XMS_ITS | Patient Health Record ---
Author Organization [facility] [employer] [place] ([address]) Address [address] [place] [address] Care Team Providers Care Cashier Host/Hostess Name Role Phone Jean Baptiste Lucio Primary Care Provider Clive Rodney Unavailable [phone] Allergies Allergen (clinical drug ingredient) Drug/Non Drug Allergy documented on EMR Reaction Allergy Type Onset Date Status bevacizumab Avastin Elevated BP, Hea rt Palpitations Drug Allergy Active Reason For Referral No Information Medications Medication SIG (Take, Route, Frequency, Duration) Notes Start Date End Date Status Vitamin D3 50 MCG (1999 UT) 1 tab(s) orally once a day Active Lisinopril 5 MG 1 tab(s) orally once a day Active EpiPen 2-Bhargav 0.3 MG/0.3ML 0.3 mg intramuscularly once; Duration: 1 dose(s) Active FLUTICASONE PROPIONATE 50 mcg/inh 2 spray(s) intranasally once a day; Duration: 30 day(s) Active ATORVASTATIN 10 mg 0.5 tablet orally three times weekly Active EPIPEN 2-BHARGAV 0.3 mg 0.3 mg intramuscularly once; Duration: 1 dose(s) Active Benadryl Allergy 25 MG 1 cap(s) orally 3 times a day Active SIT (TRADITIONAL) VARIABLE PER SCHEDULE SC PER SCHEDULE *Please review for potential replacement for e-prescription and drug interaction check* Active FLONASE 0.05 mg/inh 1 spray(s) intranasally (avoid nasal septum) once a day Active Flonase Allergy Relief 50 MCG/ACT 1 spray(s) intranasally (avoid nasal septum) once a day Active Vitamin D3 1.25 MG (14212 UT) 1 cap(s) orally once a week Active Fluticasone Propionate 50 MCG/ACT 2 spray(s) intranasally once a day; Duration: 30 day(s) Active BENADRYL 25 mg 1 cap(s) orally 3 times a day Active Atorvastatin Calcium 10 MG 0.5 tablet orally three times weekly Active VITAMIN D3 50,000 intl units 1 cap(s) orally once a week Active Cetirizine HCl 10 MG 1 tab(s) orally onc e a day; Duration: 30 day(s) Active CETIRIZINE HYDROCHLORIDE 10 mg 1 tab(s) orally once a day; Duration: 30 day(s) Active SIT (CLUSTER) VARIABLE PER SCHEDULE SC PER SCHEDULE; Duration: TO BE DETERMINED *Please review for potential replacement for e-prescription and drug interaction check* Active NASONEX 50 MCG/INH 2 SPRAY(S) INTRANASALLY ONCE A DAY; Duration: 30 DAY(S) *Please review for potential replacement for e-prescription and drug interaction check* Active PATANASE NASAL SPRAY (W/REBATE) 665 MCG/INH 2 SPRAY(S) INTRANASALLY 2 TIMES A DAY; Duration: 30 DAY(S) *Please review for potential replacement for e-prescription and drug interaction check* Active LISINOPRIL 5 mg 1 tab(s) orally once a day Active VITAMIN D3 2000 intl units 1 tab(s) orally once a day Active Immunizations Vaccine Route Administration Date Status Comme nts Influenza Unknown 08/09/2014 Administered Social History Tobacco Use: Social History Observation Description Date Details (start date - stop date) Never Smoker NA - NA Smoking Smart Form: Question Answer Notes Are you a: never smoker Problems Problem Type SNOMED Code ICD Code Onset Dates Problem Status W/U Status Risk Notes Problem Allergic rhinitis caused by pollen (disorder) (81152131) Allergic rhinitis due to pollen (J30.1) Active confirmed Problem Allergic rhinitis caused by animal hair and dander (763808263718116) Allergic rhinitis due to animal (cat) (dog) hair and dander (J30.81) Active confirmed Problem Allergic rhinitis (85138615) Other allergic rhinitis (J30.89) Active confirmed Problem Chronic allergic conjunctivitis (50023571) Other chronic allergic conjunctivitis (H10.45) Active confirmed Problem Chronic sinusitis (29574241) Other chronic sinusitis (J32.8) Active confirmed Problem Essential hypertension (57217379) Essential (primary) hypertension (I10) Active confirmed Problem Vitamin D deficiency (68030682) Vitamin D deficiency, unspecified (E55.9) Active confirmed Plan Of Treatment No Information Insurance Providers Payer Name Payer Address Payer Phone Subscriber Number Group Number Insured Name Patient Relationship to Insured Coverage Start Date Coverage End Date [facility] [address] [place] [address] [id number] Mely Milligan Self - patient is the insured Medical (General) History Medical History History ICD Code Allergic rhinitis due to allergen 477.8 Chronic sinusitis NOS 473.9 Hypertension 401.9 Skin Cancer Basal cell carcinoma Carpal tunnel syndrome Surgical History Surgery Date(Month/Year) cholecystectomy 1979 carpal tunnel release 1987 hysterectomy 1980 rectocele 1990 cataract removal 09/2014 Hospitalization History Reason Date(Month/Year) See Surgical History
--- OUTSIDE RECORDS SUMMARY | 2025-05-24 22:03 | XMS_ITS | Continuity of Care Document ---
Author Organization [facility] Address [address] [place], [place] [id number] Phone Care Team Providers Care Automatic Paint Sprayer Operator Name Role Phone Felicity VO, ALFONSO DOMINIQUE Harvey Unavailable U navailable Felicity VO FACC, FSCAI, Harvey Unavailable U navailallan Procedures Procedure Date REM MNTR PHYSIOL JOSIAH DEV REM PHYSIOL MNTR 20 MIN MO Advance Directives Directive Yes / No Effective Date File Name No Information Encounters Encounter Description Practice Location Reason(s) For Visit Diagnoses Date Provider Providers Copied on Encounter [facility], [address] [place] [address], [id number], tel:[phone] No Information Felicity Campos. [address] [place] [address], [id number], . tel:[phone] Referring Provider: Andres Blevins, [address] [place] [address], [address]. tel:[phone] lting Provider: Andres Blevins, [address] [place] [address], [id number]. tel:[phone] REM MNTR PHYSIOL JOSIAH DEV [facility], [address] [place] [address], [id number], tel:[phone] [facility] Essential (primary) hypertension Feliciyt Campos. [address] [place] [address], [id number], . tel:[phone] Referring Provider: Andres Blevins, [address], [place], [address]. tel:[phone] lting Provider: Andres Blevins, [address], [place], [address]. tel:[phone] Family History Family Member Type Diagnosis Age At Onset No Information Payers Payer name Insurance type Covered libertarian ID Authoriza tion(s) No Information Social History Type Description Quantity Date Captured Comments Sex Female Smoking Status No Information Chief Complaint And Reason For Visit No Information Reason For Referral Reason For Referral No Information Plan Of Treatment Date Type Action Status Appointment Mely Milligan Appointment Mely Milligan Appointment Mely Milligan History Of Present Illness Encounter Date Complaint History Of Prese nt Illness No Information Functional Status Date Functional Assessmen t No Information Instructions Date Instruction Additional Infor mation No Information Assessments Type Assessment Date No Information Patient Care Teams Name Effective Dates (start - stop) Status Members No Information
--- OUTSIDE RECORDS SUMMARY | 2025-05-25 01:10 | XMS_ITS | Continuity of Care Document ---
Author Organization [facility] Address [address] [place], [place] [id number] Phone Care Team Providers Care Vacuum Cleaner Repair Person Name Role Phone Felicity VO, ALFONSO DOMINIQUE Harvey Unavailable U navailable Felicity VO FACC, FSCAI, Harvey Unavailable U navailallan Procedures Procedure Date REM MNTR PHYSIOL JOSIAH DEV REM PHYSIOL MNTR 20 MIN MO Advance Directives Directive Yes / No Effective Date File Name No Information Encounters Encounter Description Practice Location Reason(s) For Visit Diagnoses Date Provider Providers Copied on Encounter [facility], [address] [place] [address], [id number], tel:[phone] No Information Felicity Campos. [address] [place] [address], [id number], . tel:[phone] Referring Provider: Andres Blevins, [address] [place] [address], [address]. tel:[phone] lting Provider: Andres Blevins, [address] [place] [address], [address]. tel:[phone] REM MNTR PHYSIOL JOSIAH DEV [facility], [address] [place] [address], [id number], tel:[phone] [facility] Essential (primary) hypertension Felicity Campos. [address] [place] [address], [id number], . tel:[phone] Referring Provider: Andres Blevins, [address], [place], [address]. tel:[phone] lting Provider: Andres Blevins, [address], [place], [address]. tel:[phone] Family History Family Member Type Diagnosis Age At Onset No Information Payers Payer name Insurance type Covered green party ID Authoriza tion(s) No Information Social [...]
--- OUTSIDE RECORDS SUMMARY | 2025-05-25 01:11 | XMS_ITS ---
Author Organization [facility] [place] ([address]) Address [address] [place] [address] Care Team Providers Care Stamp Mounter Name Role Phone Lucio Jean Baptiste Primary Care Provider Unavailabl Clive Antony Unavailable [phone] [facility], Provider Unavailable Unavailab le Allergies Allergen (clinical drug ingredient) Drug/Non Drug Allergy documented on EMR Reaction Allergy Type Onset Date Status bevacizumab Avastin Elevated BP, Hea rt Palpitations Drug Allergy Active REASON FOR VISIT [facility] Conversion Encounter Medications Medication SIG (Take, Route, [...] a day Active Vitamin D3 1.25 MG (78654 UT) 1 cap(s) orally once a week Active Encounters Encounter Location Date Provider Diagnosis [address] [address] 03/21/2024 Provider Shirin Allergic rhinitis due to [...] Mely MILLIGAN MDOB:[birth year] (74 yo F)Acc No.[id number]:03/21/2024 Patient: Maxx Mely VELAZQUEZ Provider: Robert Mueller :1950 A ge:73 Y S ex:Female Date:03/21/2024 Address:[address] [place], [place] [id number] Pcp:Lucio Jean Baptiste Subjective: * Chief Complaints: [...] once , Taking Vitamin D3 1.25 MG (90463 UT) Capsule 1 cap(s) orally once a [...] * Electronic signature of Raysa CORCORAN-Migration on 05/25/2025 at 01:10 AM CDT Sign off status: Pending * Provider: Robert angel Migration Date: 0 03/21/2024 Generated for Perla palomino/Edward/Pauline on: 05/25/2025 01:10 AM CDT
--- OUTSIDE RECORDS SUMMARY | 2025-05-25 01:11 | XMS_ITS | Patient Health Record ---
Author Organization [facility] [employer] [place] ([address]) Address [address] [place] [address] Care Team Providers Care Flow Machine Operator Name Role Phone Jean Baptiste Lucio Primary Care Provider Clive Rodney Unavailable [phone] Allergies Allergen (clinical drug ingredient) Drug/Non Drug [...] a day Active Vitamin D3 1.25 MG (16582 UT) 1 cap(s) orally once a week [...] Problem Allergic rhinitis caused by pollen (disorder) (61072478) Allergic rhinitis due to pollen (J30.1) Active confirmed Problem Allergic rhinitis caused by animal hair and dander (375548541777141) Allergic rhinitis due to animal (cat) (dog) hair and dander (J30.81) Active confirmed Problem Allergic rhinitis (36262863) Other allergic rhinitis (J30.89) Active confirmed Problem Chronic allergic conjunctivitis (28833022) Other chronic allergic conjunctivitis (H10.45) Active confirmed Problem Chronic sinusitis (89188016) Other chronic sinusitis (J32.8) Active confirmed Problem Essential hypertension (15589961) Essential (primary) hypertension (I10) Active confirmed Problem Vitamin D deficiency (56246113) Vitamin D deficiency, unspecified (E55.9) Active confirmed Plan Of Treatment No Information Insurance Providers Payer Name Payer Address Payer Phone Subscriber Number Group Number Insured Name Patient Relationship to Insured Coverage Start Date Coverage End Date [facility] [address] [place] [address] [id number] Mely Milligan Self - patient is the [...]
--- OUTSIDE RECORDS SUMMARY | 2025-05-25 01:11 | XMS_ITS | Continuity of Care Document ---
Author Organization [facility] Address [address] [place] [address] Phone Care Team Providers Care Animator Name Role Phone Anthony PT,MPT,ATC, Danny Unavailable [...] Diagnoses Date Provider Providers Copied on Encounter [facility], [place], [place], [id number], tel:[phone] [place] No Information [address] [place], [place], [place]. [facility], [place], [place], [id number], tel:[phone] [place] No Information 9 [facility]. , [place], [place]. [facility], [place], [place], [id number], tel:[phone] [place] No Information 9 [place], [place], [place]. [facility], [address], [place], [place], [id number], tel:[phone] [place] No Information 9 [place], [place], . [facility], [place], [place], [id number], tel:[phone] [place] No Information 9 [place], [place], . [facility], [address], [place], [place], [id number], tel:[phone] [place] No Information 9 Madalyn Johnson. . Family History Family Member Type Diagnosis Age At Onset No Information Payers Payer name Insurance type Covered republican ID Authoriza tion(s) No Information Social History [...]
--- NOTE | 2025-05-25 01:44 | ED.GENADULT ---
HPI - General Adult General Chief complaint: Headache Stated complaint: headache Time Seen by Provider: 05/25/25 01:01 History of Present Illness HPI narrative: 74-year-old female presented to the emergency department for evaluation for right ear pain and pressure. Patient reports symptoms have been ongoing for the last few days. Patient initially thought secondary to allergies but the hearing never improved. Patient denies any falls or injuries. Related Data Home Medications ?Medication ?Instructions ?Recorded ?Confirmed ?Last Taken ?Type atorvastatin 10 mg tablet 5 mg PO .COMPLEX 12/26/23 10/01/24 Unknown History cetirizine 10 mg capsule (All Day 10 mg PO DAILY PRN Allergic 12/26/23 10/01/24 Unknown History Allergy (cetirizine)) Symptoms cholecalciferol (vitamin D3) 50 50 mcg PO DAILY 12/26/23 10/01/24 Unknown History mcg (2,000 unit) capsule fluticasone propionate 50 2 spray intranasal DAILY 12/26/23 10/01/24 Unknown History mcg/actuation nasal spray,suspension (Allergy Relief (fluticasone)) [id number] 250 mg-dha 90 1 cap PO DAILY 12/26/23 10/01/24 09/11/24 History mg-epa 160 qn-gqgi-xdzg-zeax capsule (Ocuvite Adult 50 Plus) acetaminophen 500 mg tablet 500 mg PO Q6H PRN Pain 05/27/24 10/01/24 Unknown History aspirin 81 mg tablet,delayed 81 mg PO DAILY 09/10/24 10/01/24 09/11/24 History release ezetimibe 10 mg tablet (Zetia) 10 mg PO DAILY 09/10/24 10/01/24 Unknown History losartan 50 mg tablet 50 mg PO DAILY 09/10/24 10/01/24 Unknown History Allergies Allergy/AdvReac Type Severity Reaction Status Date / Time bevacizumab Allergy Severe RAPID HB, Verified 05/24/25 22:02 RADHA Review of Systems Review of Systems: All systems reviewed & are unremarkable except as noted in HPI and below PMFSH Past Medical History Medical History Retinal hemorrhage High cholesterol Hypertension Allergies Surgical History Surgical History Hx of cholecystectomy H/O: hysterectomy Family History Family History Sibling Family history of liver disease Family history of malignant neoplasm Family history of kidney disease Cerebrovascular accident Mother Family history of diabetes mellitus in first degree relative Diabetes mellitus Dementia Father , Onset Age: 33 MVC Sibling , copd Liver cancer Social History Social History Smoking status: Never smoker Second hand tobacco smoke exposure: No Alcohol intake: never Substance use: never Substance use type: does not use Do You Feel Safe in your Home?: Yes Lack of Transportation: No Lack of Food: Never True Current Housing: I Have Housing Concerned About Future Housing: No Difficulty Paying Gas/Electric Bills: No Difficulty Paying for Meds: No Currently Unemployed: No Education: Trade/Vocational Certificate Difficulty w/ Childcare or Family Care: No Living arrangements: with family 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 HEAD: normocephalic, atraumatic. EYES: PERRLA/EOMI, conjunctivae clear. NOSE: Normal no drainage EARS: TM obstructed on right THROAT: Pharynx clear, no exudate. NECK: Supple. No adenopathy, no masses. RESPIRATORY: Airway patent, respirations nonlabored. Clear to auscultation bilaterally, no rales, rhonchi, wheezing. CARDIOVASCULAR: Regular rate and rhythm without murmurs rubs or gallops. ABDOMINAL: Soft, nontender, nondistended, normal bowel sounds MUSCULOSKELETAL: Moves all extremities. Strength/ROM intact, No edema, No calf tenderness. NEURO: Alert. Cranial nerves II through XII intact. Grossly intact SKIN: Warm, dry. Normal Color Course Vital Signs Vital signs: Vital Signs Temperature 97.8 F 05/24/25 22:03 Pulse Rate 78 05/24/25 22:03 Respiratory Rate 16 05/24/25 22:03 Blood Pressure 199/91 H 05/24/25 22:03 Pulse Oximetry 98 05/24/25 22:03 Oxygen Delivery Room Air 05/24/25 22:03 Temperature 97.8 F 05/24/25 22:03 Pulse Rate 80 05/25/25 04:50 Respiratory Rate 18 05/25/25 04:50 Blood Pressure 123/75 05/25/25 04:50 Pulse Oximetry 99 05/25/25 04:50 Oxygen Delivery Room Air 05/24/25 22:03 Medical Decision Making MDM Narrative Medical decision making narrative: 74-year-old female present to the emergency department for evaluation for right ear pain. Patient did have a cerumen impaction on the right this was cleared out and patient reports she feels significantly improved. Patient states her ear pressure is resolved. Patient did have some mild irritation of the external canal with no evidence of otitis media. Patient was updated on the results of her examination and patient was encouraged of close follow-up with her primary care physician Differential Diagnosis Differential Diagnosis: Otitis externa, otitis media, cerumen impaction, tinnitus Vital Signs Vital Signs: Vital Signs Temperature 97.8 F 05/24/25 22:03 Pulse Rate 78 05/24/25 22:03 Respiratory Rate 16 05/24/25 22:03 Blood Pressure 199/91 H 05/24/25 22:03 Pulse Oximetry 98 05/24/25 22:03 Oxygen Delivery Room Air 05/24/25 22:03 Temperature 97.8 F 05/24/25 22:03 Pulse Rate 80 05/25/25 04:50 Respiratory Rate 18 05/25/25 04:50 Blood Pressure 123/75 05/25/25 04:50 Pulse Oximetry 99 05/25/25 04:50 Oxygen Delivery Room Air 05/24/25 22:03 Discharge Plan Discharge Clinical Impression: Cerumen impaction, Otalgia of right ear Patient Disposition: Home Condition: Improved Instructions: Antibiotic Form Patient Language: Uzbek Prescriptions: No Action atorvastatin 10 mg tablet 5 mg PO .COMPLEX Rx Instructions: 5 mg orally 3 times weekly; cholecalciferol (vitamin D3) 50 mcg (2,000 unit) capsule 50 mcg PO DAILY Ocuvite Adult 50 Plus 250 mg (90 mg-160 mg) capsule 1 cap PO DAILY All Day Allergy (cetirizine) 10 mg capsule 10 mg PO DAILY PRN (Reason: Allergic Symptoms) fluticasone propionate [Allergy Relief (fluticasone)] 50 mcg/actuation spray,suspension 2 spray intranasal DAILY Rx Instructions: administer into each nostril losartan 50 mg tablet 50 mg PO DAILY ezetimibe [Zetia] 10 mg tablet 10 mg PO DAILY aspirin 81 mg tablet,delayed release (DR/EC) 81 mg PO DAILY acetaminophen 500 mg Tablet 500 mg PO Q6H PRN (Reason: Pain) Follow-up/Referrals: Markel,MD Lucio [Primary Care Provider]
[2025-05-25] MEDS: HYDROGEN PEROXIDE 3% SOLN(*SP) 473 ML BOTTLE (04:47)
[2025-05-25 04:50] VITALS: BP 123/75; PULSE 80; RESP 18; O2SAT 99
== END 2025-05-25 03:30 | disposition home or self-care (01) ==
PROVIDERS: Emergency Provider Emergency Medicine; PCP Internal Medicine
DX: H61.21 Impacted cerumen, right ear (principal); H92.01 Otalgia, right ear; I10 Essential (primary) hypertension; E78.00 Pure hypercholesterolemia, unspecified; Z90.49 Acquired absence of other specified parts of digestive tract; Z90.710 Acquired absence of both cervix and uterus; Z79.82 Long term (current) use of aspirin; Z79.899 Other long term (current) drug therapy
CPT/HCPCS: 69209; 99282; A9270

== ENCOUNTER 2025-06-15 01:35 | Emergency (ER) | payer MEDICARE, SELFPAY ==
[2025-06-15] VITALS (20 sets, daily range): BP systolic 123–181; BP diastolic 63–134; PULSE 87–90; RESP 16–18; TEMP 36.7–37.1; O2SAT 95–99
--- NOTE | ~2025-06-15 | CT_ITS ---
EXAMINATION: CTA BRAIN/CAROTID DATE: 06/15/2025 05:33 INDICATION: Posterior headache and neck pain TECHNIQUE: Computed tomographic angiography (CTA) of the head and neck was performed with 100 mL Omnipaque-350 intravenous contrast. Multiplanar reconstructions and maximum intensity projection 3D-reconstructions of the carotid arteries and of the intracranial arteries were created by the technologist on a separate workstation. Automated exposure control and iterative reconstruction technique were employed.The dose-length product was 937.70 mGy-cm. COMPARISON: Head CT dated 06/15/2025 FINDINGS: Intracranial arteries Vertebral arteries are codominant. Intracranial calcified cerebral atherosclerosis is noted without hemodynamically significant stenosis at the bilateral vertebral arteries and carotid siphons. There is no hemodynamically significant stenosis in the vertebral, basilar and internal carotid arteries. Both A1 and P1 segments are patent. There are no aneurysms identified. Cerebral arterial arborization appears symmetric. Carotid arteries: The aortic arch and the great vessels arising from the arch are normal in caliber with no dissection or hemodynamically significant stenosis. There is small amount of atherosclerotic plaque with 0% stenosis of the right and left carotid bulbs relative to normal distal artery lumen diameter (NASCET criteria). There is % stenosis of the left carotid bulb relative to normal distal artery lumen diameter. Visualized upper lungs are clear. Severe cervical spondylosis. Cervical soft tissues are unremarkable. IMPRESSION: 1. No atherosclerotic plaque with 0% stenosis of the right and left carotid bulbs relative to normal distal artery lumen diameter (NASCET criteria). 2. Unremarkable cerebral CT angiogram with no hemodynamically significant stenosis, thrombosis or aneurysm. Reviewed, dictated and finalized at location A. IMPRESSION: 1. No atherosclerotic plaque with 0% stenosis of the right and left carotid bul bs relative to normal distal artery lumen diameter (NASCET criteria). 2. Unremarkable cerebral CT angiogram with no hemodynamically significant steno sis, thrombosis or aneurysm.
--- NOTE | ~2025-06-15 | CT_ITS ---
EXAMINATION: CT brain wo con DATE: 06/15/2025 02:35 INDICATION: Headache TECHNIQUE: Computed tomography (CT) of the head was performed without intravenous contrast. The dose-length product was 605.33 mGy-cm. COMPARISON: None FINDINGS: No acute intracranial hemorrhage. No mass effect. No midline shift. No hydrocephalus. Small lacunar infarction in the left basal ganglia of indeterminate age. There are several low density regions scattered throughout the periventricular and deep white matter which are favored to represent chronic ischemic white matter change. No skull fracture. Visualized paranasal sinuses and mastoid air cells are clear. IMPRESSION: 1. No acute intracranial hemorrhage. No mass effect. 2. Small lacunar infarction in the left basal ganglia of indeterminate age. 3. Probable chronic ischemic white matter change. Reviewed, dictated and finalized at location Q.
--- NOTE | 2025-06-15 03:30 | PC.NURSE ---
Pt ambulated to and from bathroom without assistance.
[2025-06-15] MEDS: diphenhydrAMINE HCl CAP 25 MG CAPSULE PO (03:43)
[2025-06-15] MEDS: PROCHLORPERAZINE EDISYLATE 10 MG/2 ML VIAL IM (03:43)
[2025-06-15] MEDS: ACETAMINOPHEN 500 MG TABLET 1000 MG PO (03:43)
[2025-06-15 05:31] LABS: Estimated CRCL calculation 43 ml/min; Estimated Glomerular Filt Rate > 60
--- NOTE | 2025-06-15 06:25 | ED.GENADULT ---
HPI - General Adult General Chief complaint: Headache <Reji Lin MD - Last Filed: 06/15/25 06:50> Stated complaint: ANGUIANO/HTN <Reji Lin MD - Last Filed: 06/15/25 06:50> Time Seen by Provider: 06/15/25 01:47 <Reji Lin MD - Last Filed: 06/15/25 06:50> History of Present Illness HPI narrative: This is a 74-year-old female presenting ED with a chief complaint of headache. Patient says for last 3 weeks she has been having a posterior headache sometimes radiates into her neck and shoulders. It fluctuates in intensity. She checks her blood pressure multiple times today and notices that when the headache is worse her blood pressure is worse. She denies any thunderclap onset. She denies any loss of consciousness. No visual changes or neurologic deficits. She has been taking Tylenol with some relief. Patient does not typically get headaches like this. <Reji Lin MD - Last Filed: 06/15/25 06:50> This is a 74-year-old female presenting ED with a chief complaint of headache. Patient says for last 3 weeks she has been having a posterior headache that sometimes radiates into her neck and shoulders. It fluctuates in intensity. She checked her blood pressure multiple times today and notices that when the headache is worse her blood pressure is worse. She denies any thunderclap onset. She denies any loss of consciousness. No visual changes or neurologic deficits. She has been taking Tylenol with some relief. Patient does not typically get headaches like this. <Ray Mejia MD - Last Filed: 06/15/25 17:19> Related Data Home medications: Home Medications ?Medication ?Instructions ?Recorded ?Confirmed ?Last Taken ?Type atorvastatin 10 mg tablet 5 mg PO .COMPLEX 12/26/23 10/01/24 Unknown History cetirizine 10 mg capsule (All Day 10 mg PO DAILY PRN Allergic 12/26/23 10/01/24 Unknown History Allergy (cetirizine)) Symptoms cholecalciferol (vitamin D3) 50 50 mcg PO DAILY 12/26/23 10/01/24 Unknown History mcg (2,000 unit) capsule fluticasone propionate 50 2 spray intranasal DAILY 12/26/23 10/01/24 Unknown History mcg/actuation nasal spray,suspension (Allergy Relief (fluticasone)) [id number] 250 mg-dha 90 1 cap PO DAILY 12/26/23 10/01/24 09/11/24 History mg-epa 160 [id number] capsule (Ocuvite Adult 50 Plus) acetaminophen 500 mg tablet 500 mg PO Q6H PRN Pain 05/27/24 10/01/24 Unknown History aspirin 81 mg tablet,delayed 81 mg PO DAILY 09/10/24 10/01/24 09/11/24 History release ezetimibe 10 mg tablet (Zetia) 10 mg PO DAILY 09/10/24 10/01/24 Unknown History losartan 50 mg tablet 50 mg PO DAILY 09/10/24 10/01/24 Unknown History <Reji Lin MD - Last Filed: 06/15/25 06:50> Allergies/adverse reactions: Allergies Allergy/AdvReac Type Severity Reaction Status Date / Time bevacizumab Allergy Severe RAPID HB, Verified 05/24/25 22:02 SHAKES <Reji Lin MD - Last Filed: 06/15/25 06:50> [facility] Past Medical History Medical History: Medical History Retinal hemorrhage High cholesterol Hypertension Allergies <Reji Lin MD - Last Filed: 06/15/25 06:50> Surgical History Surgical History: Surgical History Hx of cholecystectomy H/O: hysterectomy <Reji Lin MD - Last Filed: 06/15/25 06:50> Family History Family History: Family History Sibling Family history of liver disease Family history of malignant neoplasm Family history of kidney disease Cerebrovascular accident Mother Family history of diabetes mellitus in first degree relative Diabetes mellitus Dementia Father , Onset Age: 33 MVC Sibling , copd Liver cancer <Reji Lin MD - Last Filed: 06/15/25 06:50> Social History Social History: Social History Smoking status: Never smoker Second hand tobacco smoke exposure: No Alcohol intake: never Substance use: never Substance use type: does not use Do You Feel Safe in your Home?: Yes Lack of Transportation: No Lack of Food: Never True Current Housing: I Have Housing Concerned About Future Housing: No Difficulty Paying Gas/Electric Bills: No Difficulty Paying for Meds: No Currently Unemployed: No Education: Trade/Vocational Certificate Difficulty w/ Childcare or Family Care: No Living arrangements: with family Occupation/Education: retired Additional occupation/education comments: [employer] Gender identity (if verbalized by the patient): Female Spiritual care concerns: No <Reji Lin MD - Last Filed: 06/15/25 06:50> Exam Narrative: APPEARANCE: No apparent distress. Head: atraumatic. EYES: EOMI, NOSE: Atraumatic NECK: Trachea midline RESPIRATORY: No increased rate of breathing CARDIOVASCULAR: RRR, ABDOMINAL: Non-distended MUSCULOSKELETAl: No obvious deformities NEURO: Alert. Cranial nerves 2-12 grossly intact. Sensation light touch, motor function cerebellar function intact for 4 extremities. Gait exam was normal. SKIN:: Warm, dry. Normal color PSYCHIATRIC: Normal affect <Reji Lin MD - Last Filed: 06/15/25 06:50> Course Vital Signs Vital signs: Vital Signs Temperature 98.8 F 06/15/25 01:38 Pulse Rate 90 06/15/25 01:38 Respiratory Rate 18 06/15/25 01:38 Blood Pressure 181/72 H 06/15/25 01:38 Pulse Oximetry 99 06/15/25 01:38 Temperature 98.0 F 06/15/25 07:45 Pulse Rate 87 06/15/25 07:45 Respiratory Rate 16 06/15/25 07:45 Blood Pressure 163/86 H 06/15/25 07:45 Pulse Oximetry 99 06/15/25 07:45 <Reji Lin MD - Last Filed: 06/15/25 06:50> Vital Signs Temperature 98.8 F 06/15/25 01:38 Pulse Rate 90 06/15/25 01:38 Respiratory Rate 18 06/15/25 01:38 Blood Pressure 181/72 H 06/15/25 01:38 Pulse Oximetry 99 06/15/25 01:38 Temperature 98.0 F 06/15/25 07:45 Pulse Rate 87 06/15/25 07:45 Respiratory Rate 16 06/15/25 07:45 Blood Pressure 163/86 H 06/15/25 07:45 Pulse Oximetry 99 06/15/25 07:45 <Ray Mejia MD - Last Filed: 06/15/25 17:19> Medical Decision Making MDM Narrative Medical decision making narrative: -Course: 74-year-old female presenting with headache. CT non-con unremarkable. Patient received a migraine cocktail with significant improvement. CTA was ordered to evaluate for aneurysm/dissection/subarachnoid hemorrhage. Patient signed out to the oncoming doctor pending CTA read. -DDX includes but is not limited to: Tension headache, migraine headache, intracranial hemorrhage, subarachnoid hemorrhage <Reji Lin MD - Last Filed: 06/15/25 06:50> -Course: 74-year-old female presenting with headache. CT non-con unremarkable. Patient received a migraine cocktail with significant improvement. CTA was ordered to evaluate for aneurysm/dissection/subarachnoid hemorrhage. Patient signed out to the oncoming doctor pending CTA read. -DDX includes but is not limited to: Tension headache, migraine headache, intracranial hemorrhage, subarachnoid hemorrhage --- Patient care was signed out to me by the overnight physician with CTA pending. Patient presented with headache symptoms and patient was treated with Tylenol, Compazine, Benadryl. On re-evaluation patient does feel significantly improved. Head CT was negative and the additional CTA was also negative. Patient was updated results of her workup and symptom control for home. Patient was also educated on reasons to return to the emergency department. All questions concerns were addressed. <Ray Mejia MD - Last Filed: 06/15/25 17:19> Vital Signs Vital Signs: Vital Signs Temperature 98.8 F 06/15/25 01:38 Pulse Rate 90 06/15/25 01:38 Respiratory Rate 18 06/15/25 01:38 Blood Pressure 181/72 H 06/15/25 01:38 Pulse Oximetry 99 06/15/25 01:38 Temperature 98.0 F 06/15/25 07:45 Pulse Rate 87 06/15/25 07:45 Respiratory Rate 16 06/15/25 07:45 Blood Pressure 163/86 H 06/15/25 07:45 Pulse Oximetry 99 06/15/25 07:45 <Reji Lin MD - Last Filed: 06/15/25 06:50> Vital Signs Temperature 98.8 F 06/15/25 01:38 Pulse Rate 90 06/15/25 01:38 Respiratory Rate 18 06/15/25 01:38 Blood Pressure 181/72 H 06/15/25 01:38 Pulse Oximetry 99 06/15/25 01:38 Temperature 98.0 F 06/15/25 07:45 Pulse Rate 87 06/15/25 07:45 Respiratory Rate 16 06/15/25 07:45 Blood Pressure 163/86 H 06/15/25 07:45 Pulse Oximetry 99 06/15/25 07:45 <Ray Mejia MD - Last Filed: 06/15/25 17:19> Lab Data Result diagrams: 06/15/25 05:29 <Reji Lin MD - Last Filed: 06/15/25 06:50> Labs: Lab Results 06/15/25 Range/Units 05:29 Creatinine 0.90 (0.7-1.2) mg/dL Estim Creat Clear Calc 43 ml/min Estimated GFR > 60 (59 - ) <Reji Lin MD - Last Filed: 06/15/25 06:50> Lab Results 06/15/25 Range/Units 05:29 Creatinine 0.90 (0.7-1.2) mg/dL Estim Creat Clear Calc 43 ml/min Estimated GFR > 60 (59 - ) <Ray Mejia MD - Last Filed: 06/15/25 17:19> Discharge Plan Discharge Clinical Impression: Headache <Reji Lin MD - Last Filed: 06/15/25 06:50> Patient Disposition: Home <Reji Lin MD - Last Filed: 06/15/25 06:50> Condition: Stable <Reji Lin MD - Last Filed: 06/15/25 06:50> Instructions: Antibiotic Form, Acute Headache (ED) <Reji Lin MD - Last Filed: 06/15/25 06:50> Additional Instructions: You were seen in the emergency department for headaches. Please take Tylenol for pain. Please follow-up with your primary care physician at your scheduled appointment. If you develop any visual changes, slurred speech, weakness to any extremity, loss of consciousness confusion or fevers please return to the ED for re-evaluation. <Reji Lin MD - Last Filed: 06/15/25 06:50> Patient Language: Setswana <Reji Lin MD - Last Filed: 06/15/25 06:50> Prescriptions: No Action atorvastatin 10 mg tablet 5 mg PO .COMPLEX Rx Instructions: 5 mg orally 3 times weekly; cholecalciferol (vitamin D3) 50 mcg (2,000 unit) capsule 50 mcg PO DAILY Ocuvite Adult 50 Plus 250 mg (90 mg-160 mg) capsule 1 cap PO DAILY All Day Allergy (cetirizine) 10 mg capsule 10 mg PO DAILY PRN (Reason: Allergic Symptoms) fluticasone propionate [Allergy Relief (fluticasone)] 50 mcg/actuation spray,suspension 2 spray intranasal DAILY Rx Instructions: administer into each nostril losartan 50 mg tablet 50 mg PO DAILY ezetimibe [Zetia] 10 mg tablet 10 mg PO DAILY aspirin 81 mg tablet,delayed release (DR/EC) 81 mg PO DAILY acetaminophen 500 mg Tablet 500 mg PO Q6H PRN (Reason: Pain) <Reji Lin MD - Last Filed: 06/15/25 06:50> Follow-up/Referrals: Markel,MD Lucio [Primary Care Provider] <Reji Lin MD - Last Filed: 06/15/25 06:50>
== END 2025-06-15 08:20 | disposition home or self-care (01) ==
PROVIDERS: Emergency Provider Emergency Medicine; PCP Internal Medicine
DX: R51.9 Headache, unspecified (principal); I10 Essential (primary) hypertension; E78.00 Pure hypercholesterolemia, unspecified; Z90.49 Acquired absence of other specified parts of digestive tract; Z90.710 Acquired absence of both cervix and uterus; Z79.899 Other long term (current) drug therapy; Z79.82 Long term (current) use of aspirin
CPT/HCPCS: 70450; 70496; 70498; 96372; 99284; A9270; J0780; Q9967

== ENCOUNTER 2025-06-21 11:06 | Outpatient (CLI) | payer MEDICARE, SELFPAY ==
--- NOTE | ~2025-06-21 | XR_ITS ---
[id number] 06/21/2025 11:24 Indication: Cervicalgia Procedure: 4 view cervical spine Comparison: No prior studies for comparison. Findings: There is straightening of cervical lordosis. There is degenerative anterolisthesis at C2-3 and C3-4. No prevertebral soft tissue swelling. There is multilevel uncinate hypertrophy. Lung apices are normal. Odontoid process is normal. No acute fracture or traumatic malalignment. Impression: 1: Moderate-severe cervical spondylosis. Reviewed, dictated and finalized at location O. Impression: 1: Moderate-severe cervical spondylosis.
== END 2025-06-21 11:07 | disposition home or self-care (01) ==
LOC: MICIMG 11:07
PROVIDERS: PCP Internal Medicine; Visit Provider Internal Medicine
DX: M47.892 Other spondylosis, cervical region (principal)
CPT/HCPCS: 72040